=== PATIENT | male | born 1965 | race Caucasian/White ===

== ENCOUNTER 2017-10-28 04:07 | Emergency (ER) | payer BC ==
[~2017-10-28] VITALS: Ht 172.7 cm; Wt 97.0 kg
[2017-10-28 04:11] VITALS: Ht 172.7 cm; Wt 97.0 kg
[2017-10-28] MEDS ORDERED: MoRPHine SULFATE 10 MG/ML CARP/VIAL IM STA (05:34)
[2017-10-28] MEDS ORDERED: KETOROLAC TROMETHAMINE 60 MG/2 ML VIAL IM STA (05:34)
[2017-10-28] MEDS ORDERED: CYCL10TA6 PO (06:19)
[2017-10-28] MEDS ORDERED: OXYC1TAB3 PO (06:19)
--- NOTE | 2017-10-28 06:20 | EMERGENCY ROOM VISIT NOTE ---
History First contact with patient: 05:10 Chief Complaint: BACK PAIN Stated Complaint: LEFT LOWER BACK PAIN History of Present Illness The patient is a 52 year old male who presents to the Emergency Room with complaints of back pain. The patient reports that he has had progressively worsening back pain over the past one week. He states the pain is located in the left lower back and radiates into the left thigh. He rates the pain a 9/10 and [id number] medications have not been helping. He states it is difficult to sleep due to the pain. The patient reports a history of degenerative disc disease and has had surgery 4 years ago due to bone fragments in the spine. His surgery was performed in [facility]. The patient reports that he is currently on a low-dose of prednisone and has had an extended taper due to eczema. He was also recently started on hydroxyzine for this. He has not been taking any prescribed medications for his back pain. He reports some tingling in the left leg, but denies numbness or weakness. He denies any urinary retention, bowel/bladder incontinence, abdominal pain, nausea /vomiting, fevers, saddle anesthesias, or urinary symptoms. Review of Systems A complete 10 point review of systems was reviewed with the patient with pertinent positives and negatives as per history of present illness. All else were negative. Past Medical/Surgical History Medical Problems: (1) Eczema Surgical Problems: (1) History of back surgery Social History Smoking Status: Never Smoker Housing Status: lives with significant other Current/Historical Medications Scheduled Cyclobenzaprine Hcl (Flexeril), 10 MG PO TID Fluticasone Prop/Salmeterol (Advair Diskus 100/50 60 Dose), 1 PUFF INH BID Hydroxyzine Pamoate (Vistaril), 1 CAP PO DAILY Pimecrolimus (Elidel), 1 APPLN TOP BID Prednisone Tab (Prednisone), 10 MG PO DAILY Scheduled PRN Fluocinonide (Vanos), 1 APPLN TOP DAILY PRN for eczema flares Oxycodone Ir (Roxicodone Ir), 1-2 TAB PO Q4H PRN for Pain Physical Exam Vital Signs Date Time Temp Pulse Resp B/P (MAP) Pulse Ox O2 Delivery O2 Flow Rate FiO2 10/28/17 06:25 36.8 70 18 150/89 97 Room Air 10/28/17 04:11 36.6 71 18 165/96 97 Room Air Physical Exam VITALS: Vitals are noted on the nurse's note and reviewed by myself. Vital signs stable. GENERAL: This is a 52-year-old male, in no acute distress, nondiaphoretic, well- developed well-nourished. HEART: Regular rate and rhythm without murmurs gallops or rubs. LUNGS: Clear to auscultation bilaterally without wheezes, rales or rhonchi. ABDOMEN: Positive bowel sounds x 4. Soft, nontender to palpation. MUSCULOSKELETAL: There is tenderness and palpable muscle spasm in the left lumbar region. No tenderness over the lumbar spinous processes. Full range of motion and strength 5/5 in bilateral lower extremities. Patellar reflexes 2+ bilaterally. NEURO: Patient was alert and oriented to person place and time. Normal sensation of bilateral lower extremities. Medical Decision & Procedures Medications Administered Medications (Trade) Dose Ordered Sig/Jaun Route Start Time Stop Time Status Last Admin Dose Admin Morphine Sulfate (MoRPHine SULFATE INJ) 10 mg NOW STAT IM 10/28/17 05:34 10/28/17 05:35 DC 10/28/17 05:49 10 MG Ketorolac Tromethamine (Toradol Inj) 60 mg NOW STAT IM 10/28/17 05:34 10/28/17 05:35 DC 10/28/17 05:50 60 MG ED Course The patient was evaluated as above. Patient was medicated with IM Toradol and morphine. Patient was reevaluated and was feeling much better. Treatment plan was discussed with the patient. He feels ready for discharge home. Discharge instructions were reviewed with the patient. The patient verbalized understanding of my assessment and treatment plan and was discharged home in good condition. Medical Decision Differential diagnosis includes cauda equina syndrome, cord compression, disc herniation, muscle spasm, lumbar strain, epidural abscess, malignancy, transverse myelitis, urinary tract infection, colitis, diverticulitis, kidney stone, among others. The patient is a 52-year-old male who presents today complaining of low back pain with radicular symptoms. There is nothing to suggest cauda equina syndrome or cord compression on exam. I do not feel that any imaging will be necessary at this time. The patient is treated with IM Toradol and morphine with significant improvement of his discomfort. He is currently finishing a tapering of prednisone for his eczema and I do not want to change the dosage at this time. Patient was advised to discuss this with his primary care provider. He was given a prescription for pain medication and Flexeril and given information for local orthopedic spine surgeon. He will return with any numbness, weakness, bowel/bladder incontinence, saddle paresthesias or other concerning symptoms. Based on the patient's presentation and work up, I feel the patient is stable for outpatient treatment. The patient was educated to return to the emergency department for any worsening of their current condition or new/concerning symptoms. He will follow up with his PCP and ortho spine. [place] Drug Monitoring Program Search Results: patient reviewed within database, no issues identified Medication Reconcilliation Current Medication List: was personally reviewed by me Blood Pressure Screening Patient's blood pressure: Elevated blood pressure Blood pressure disposition: Elevated BP felt to be situational Impression Primary Impression: Lumbar radiculopathy Departure Information Dispostion Home / Self-Care Condition GOOD Prescriptions Cyclobenzaprine Hcl (FLEXERIL) 10 Mg Tab 10 MG PO TID for 3 Days, #9 TAB Prov: Bridget Rao PA-C 10/28/17 Oxycodone Ir (Roxicodone Ir) 5 Mg Tab 1-2 TAB PO Q4H Y for Pain, #20 TAB For Initial Treatment Prov: Bridget Rao PA-C 10/28/17 Referrals No Doctor, Assigned (PCP) Javan Gonzalez,D.O. Patient Instructions My [facility] Additional Instructions You have been treated in the Emergency Department for Back Pain. You have received pain medicine in the emergency department which impairs your ability to operate a vehicle. It is illegal for you to drive after receiving these medicines. You have been prescribed OxyIR to be used for pain control. This is a narcotic medication. You cannot drive or consume alcohol while on this medicine. This medicine should only be used for pain that cannot be controlled with over-the- counter pain medicines. You have been prescribed Flexeril (cyclobenzaprine) 1-2 tabs orally, three times per day. Do NOT exceed 30 mg (6 tabs) per day. Take your first dose at bedtime as it can make you drowsy. Always take all medications as prescribed. For pain control, you can use the following [id number] medicines (if >12 yo): - Regular strength (325mg/tab) Tylenol (acetaminophen) 2 tabs every 4-6 hours as needed. Do not exceed 12 tablets in a 24 hour period. Avoid taking more than 4 grams (4000 mg) of Tylenol per day. This includes any other sources of acetaminophen you may take on a regular basis. - Regular strength (200 mg/tab) Advil (ibuprofen) 1-2 tabs every 4-6 hours as needed. Do not exceed a dose of 3200 mg per day. If this is an acute injury, ice can be applied to the area of pain for the first 3 days to help decrease pain and inflammation. After the first 3 days, a heating pad can be used over the area for continued soothing relief. You should schedule a follow-up appointment in 2-3 days with your Primary Care Provider for further evaluation and treatment of your back pain. Return to the Emergency Department if your current symptoms worsen despite treatment course outlined above, or if you develop any of the following symptoms : intractable pain despite aforementioned treatment course, loss of control of your bowel or bladder, numbness or tingling in your groin, or development of a fever.
[2017-10-28 06:25] VITALS: BP 150/89; PULSE 70; TEMP 36.8; O2SAT 97
[2017-10-28] MEDS ORDERED: PRED10TA PO (06:27)
[2017-10-28] MEDS ORDERED: ADVIN10/60 INH (06:27)
[2017-10-28] MEDS ORDERED: [UNRECOGNIZED DRUG - CODE] TOP (06:28)
[2017-10-28] MEDS ORDERED: HYDR25CA PO (06:28)
[2017-10-28] MEDS ORDERED: ELDCR/30 TOP (06:29)
== END 2017-10-28 06:28 | disposition home or self-care (01) ==
LOC: C.EDB 04:10
DX: M54.16 Radiculopathy, lumbar region (principal); L30.9 Dermatitis, unspecified; Z79.899 Other long term (current) drug therapy